=== PATIENT | male | born 1945 | race Caucasian/White ===

== ENCOUNTER 2020-06-19 11:54 | Emergency (ER) | payer BC ==
[~2020-06-19] VITALS: Ht 182.9 cm; Wt 83.9 kg
[~2020-06-19 11:54] MED LIST: MEDROL4 MG; SYNTHROID; TESSALON200 MG
[2020-06-19] MEDS ORDERED: OMEPRAZOLE10 MG PO (12:14)
[2020-06-19 12:49] VITALS: BP 126/81
== END 2020-06-19 12:49 | disposition home or self-care (01) ==
LOC: M.ERS 11:54
DX: Z20.828 Contact with and (suspected) exposure to other viral communicable diseases (principal); E03.9 Hypothyroidism, unspecified; Z79.899 Other long term (current) drug therapy

== ENCOUNTER 2021-06-04 00:44 | Emergency (ER) | payer BC ==
[~2021-06-04] VITALS: Ht 180.3 cm; Wt 79.4 kg
[~2021-06-04 00:44] MED LIST changes: +OMEPRAZOLE10 MG PO; -SYNTHROID; +SYNTHROID75 MC1 PO
[2021-06-04] MEDS ORDERED: PROTONIX40 M2 PO (01:02)
[2021-06-04] MEDS ORDERED: LISINOPRIL-HCT1 EAC2 (01:03)
[2021-06-04 01:26] LABS: ABSOLUTE EOSINOPHILS 0.1 thou/uL (0.0-0.7); ABSOLUTE LYMPHOCYTES 1.1 thou/uL (0.8-5.3); ABSOLUTE MONOCYTES 0.7 thou/uL (0.0-1.2); ABSOLUTE NEUTROPHILS 4.6 thou/uL (1.6-8.1); BASOPHILS 0.4 %; EOSINOPHILS 1.6 %; HEMOGLOBIN 14.1 gm/dL (14.0-18.0); LYMPHOCYTES 16.8 %; MCH 35.2 pg (26.0-34.0); MCHC 34.5 g/dL (28.0-37.0); MCV 102.1 fL (80.0-100.0); MONOCYTES 10.2 %; MPV 8.6 fl. (7.2-11.1); NUCLEATED RBCS 0 /100WBC; PLATELET COUNT* 141 thou/uL (150-400); RBC 4.01 mil/uL (4.50-6.00); RDW-CV 13.3 % (10.5-14.5); WBC 6.5 thou/uL (4.0-11.0)
[2021-06-04 01:30] LABS: CALCIUM 8.5 mg/dL (8.5-10.1); CREATININE 1.2 mg/dL (0.6-1.3); POTASSIUM 3.6 mmol/L (3.5-5.1)
[2021-06-04 01:35] LABS: ALBUMIN 3.6 g/dL (3.4-5.0); TOTAL BILIRUBIN 0.6 mg/dL (<0.1-1.0); TOTAL PROTEIN 6.4 g/dL (6.4-8.2)
[2021-06-04] MEDS ORDERED: PROMS25 WY RECTAL (04:40)
[2021-06-04] MEDS ORDERED: DIAZEPAM 2MG TAB2 MG PO (04:40)
[2021-06-04] MEDS ORDERED: ZOFRAN ODT4 MG PO (04:40)
[2021-06-04 04:49] LABS: URINE BILIRUBIN NEGATIVE (Negative); URINE BLOOD NEGATIVE (Negative); URINE CLARITY CLEAR; URINE COLOR YELLOW; URINE GLUCOSE-RANDOM NEGATIVE (Negative); URINE KETONES TRACE (Negative); URINE LEUKOCYTES-REFLEX NEGATIVE (Negative); URINE NITRITE-REFLEX NEGATIVE (Negative); URINE PROTEIN NEGATIVE (Negative); URINE SPECIFIC GRAVITY 1.025 (1.005-1.030); URINE UROBILINOGEN 0.2 E.U./dl (0.2-1.0)
[2021-06-04 04:55] VITALS: BP 116/59
--- NOTE | 2021-06-04 10:36 | EKG ---
[place] [address] ELECTROCARDIOGRAM REPORT Name: LEIGHANN GARY Room: [facility] ([place], [place])Abraham#: [id number] Admission: 06/04/21 Attend Phys: Discharge: 06/04/21 Date of : 43 Date of Service: 06/04/2151 Report #: [id number] THIS REPORT FOR: //name// [facility] ED Test Date: 2021-06-04 Test Time: 00:52:11 Pat Name: LEIGHANN GARY Department: Room: Gender: Product Marketing Intern: : 1945 Requested By: Lori Clay Order Number: [id number] MD: Adam Thacker Measurements Intervals [place] Rate: 46 P: 65 MD: 182 QRS: 10 QRSD: 95 T: 19 QT: 455 QTc: 398 Interpretive Statements Sinus bradycardia Compared to ECG 08/03/2014 23:16:55 Sinus rhythm no longer present Electronically Signed On 06-04-2021 10:36:35 CRANE HOOKER by Adam Thacker [email or web address] <ELECTRONICALLY SIGNED> By: Adam Thacker MD, [facility] 06/04/21 1036 005 Adam Thacker MD, FAC /EPI
== END 2021-06-04 04:55 | disposition home or self-care (01) ==
LOC: M.ERS 00:44
PROVIDERS: Personal Emergency Response Attendant
DX: R42 Dizziness and giddiness (principal); E03.9 Hypothyroidism, unspecified; Z79.891 Long term (current) use of opiate analgesic; Z79.899 Other long term (current) drug therapy